=== PATIENT | male | born 1945 | race Asian ===

== ENCOUNTER 2016-12-27 14:20 | Emergency (ER) | payer MEDICAID ==
[~2016-12-27] VITALS: Ht 165.1 cm; Wt 54.0 kg
[2016-12-27] MEDS ORDERED: METF500T4 PO (14:43)
[2016-12-27 14:54] LABS: GLUCOSE,POINT OF CARE 108 MG/DL (70-110)
[2016-12-27] MEDS ORDERED: MECLIZINE HCL 25 MG TABLET PO ONE (16:00)
[2016-12-27 17:49] VITALS: BP 138/76
== END 2016-12-27 18:20 | disposition home or self-care (01) ==
LOC: EMS 14:22
DX: H81.399 Other peripheral vertigo, unspecified ear (principal); E11.9 Type 2 diabetes mellitus without complications
CPT/HCPCS: 82962; 99283